=== PATIENT | male | born 1975 | race Caucasian/White ===

== ENCOUNTER 2018-08-04 10:57 | Emergency (ER) | payer OTHER ==
[2018-08-04 12:02] LABS: Absolute Lymphocytes (CBC) 1.7 K/uL (0.7-4.9); Absolute Monocytes 0.6 K/uL (0.1-1.3); Absolute Neutrophil 6.9 K/uL (1.8-8.0); Basophils % 1.2 % (0-1.3); Eosinophils % 0.1 % (0-4.4); Hematocrit 46.5 % (39.6-49.0); Lymphocytes % 18.6 % (15.3-44.8); MPV 9.3 fL (7.6-11.3); Monocytes % 6.1 % (3.3-12.3); RBC Red Blood Cell Count 5.27 M/uL (4.33-5.43)
[2018-08-04 12:12] LABS: Urine Amorphous Sediment 1+ /HPF (NONE SEEN); Urine Bacteria <20 /HPF (NONE SEEN); Urine Culture Reflex Order NOT NEEDED; Urine RBC <5 /HPF (NONE SEEN)
[2018-08-04 12:18] LABS: ALT/SGPT 61 U/L (12-78); AST/SGOT 29 U/L (15-37); Albumin 4.3 g/dL (3.4-5.0); Alkaline Phosphatase 60 U/L (45-117); BUN Blood Urea Nitrogen 8 mg/dL (7-18); Bicarbonate 27 mmol/L (21-32); Bilirubin Direct 0.1 mg/dL (0-0.2); Bilirubin Total 0.5 mg/dL (0.2-1.0); Glucose Level 122 mg/dL (74-106); Lipase 116 U/L (73-393); Magnesium 2.3 mg/dL (1.8-2.4); Protein, Total 7.9 g/dL (6.4-8.2); Sodium Level 141 mmol/L (136-145)
--- NOTE | 2018-08-04 12:51 | ER ---
Nurse's Notes [facility] Name: Yazan Peterson Age: 43 yrs Sex: Male : 1975 Arrival Date: 08/04/2018 Time: 11:02 Bed 15 Private MD: Diagnosis: Tinea cruris Presentation: 08/04 11:17 Presenting complaint: Patient states: burning sensation to bilateral thighs that began ss a few days ago that has not spread all over body. PT states, "Since last night, it's been hard to sleep because whenever I move it feels like I have a sunburn and I'm so thirsty. Also my penis ureña." Denies fever, N/V/D. Transition of care: patient was not received from another setting of care. Onset of symptoms is unknown. Risk Assessment: Do you want to hurt yourself or someone else? Patient reports no desire to harm self or others. Initial Sepsis Screen: Does the patient meet any 2 criteria? HR > 90 bpm. Does the patient have a suspected source of infection? No. Patient's initial sepsis screen is negative. Care prior to arrival: None. 11:17 Method Of Arrival: Ambulatory ss 11:17 Acuity: AARON 3 ss Historical: - Allergies: 11:21 No Known Allergies; ss - Home Meds: 11:21 None [Active]; ss - PMHx: 11:21 None; ss - PSHx: 11:21 R knee repair; ss - Immunization history:: Adult Immunizations up to date. - Social history:: Smoking status: Patient/guardian denies using tobacco. - Ebola Screening: : Patient denies exposure to infectious person Patient denies travel to an Ebola-affected area in the 21 days before illness onset. Screenin:50 Abuse screen: Denies threats or abuse. Denies injuries from another. Nutritional ca1 screening: No deficits noted. Tuberculosis screening: No symptoms or risk factors identified. Fall Risk None identified. Assessment: 11:50 General: Appears in no apparent distress. Behavior is calm, cooperative, appropriate ca1 for age. 11:50 Pain: Complains of pain in inner thigh Pain currently is 4 out of 10 on a pain scale. ca1 Quality of pain is described as burning. Neuro: Level of Consciousness is awake, alert, obeys commands, Oriented to person, place, time, situation. Cardiovascular: Heart tones S1 S2 present Capillary refill < 3 seconds. Respiratory: Airway is patent Trachea midline Respiratory effort is even, unlabored, Respiratory pattern is regular, symmetrical, Breath sounds are clear bilaterally. GI: Abdomen is round non-distended, Bowel sounds present X 4 quads. Abd is soft and non tender X 4 quads. Reports nausea. : No signs and/or symptoms were reported regarding the genitourinary system. : No signs and/or symptoms were reported regarding the genitourinary system. EENT: No signs and/or symptoms were reported regarding the EENT system. Derm: Skin is intact, is healthy with good turgor, Skin is pink, warm \\T\\ dry. Musculoskeletal: Circulation, motion, and sensation intact. 12:46 Reassessment: Patient appears in no apparent distress at this time. Patient and/or ca1 family updated on plan of care and expected duration. Pain level reassessed. Patient is alert, oriented x 3, equal unlabored respirations, skin warm/dry/pink. 12:47 Reassessment: JAMES Victoria at bedside. ca1 Vital Signs: 11:16 BP 157 / 109; Pulse 105; Resp 16; Temp 99.0(TE); Pulse Ox 96% on R/A; Weight 120.2 kg; ss Height 5 ft. 6 in. (167.64 cm); Pain 6/10; 11:16 Body Mass Index 42.77 (120.20 kg, 167.64 cm) ED Course: 11:02 Patient arrived in ED. rg4 11:08 Peter Victoria PA is PHCP. cp 11:09 Alcides Dai MD is Attending Physician. cp 11:16 Arm band placed on right wrist. ss 11:20 Triage completed. ss 11:20 Patient has correct armband on for positive identification. Placed in gown. Bed in low ca1 position. Call light in reach. Side rails up X 1. Pulse ox on. NIBP on. Warm blanket given. 11:27 Jessica Dixon, RN is Primary Nurse. ca1 11:50 Inserted saline lock: 20 gauge in right antecubital area, using aseptic technique. ca1 Blood collected. 13:07 No provider procedures requiring assistance completed. IV discontinued, intact, ca1 bleeding controlled, No redness/swelling at site. Pressure dressing applied. Administered Medications: No medications were administered Point of Care Testing: Blood Glucose: 11:16 Blood Glucose: 127 mg/dL; Ranges: Outcome: 12:51 Discharge ordered by . mai 13:07 Discharged to home ambulatory. ca1 13:07 Condition: stable 13:07 Discharge instructions given to patient, Instructed on discharge instructions, follow up and referral plans. medication usage, Demonstrated understanding of instructions, follow-up care, medications, Prescriptions given X 2. 13:08 Patient left the ED. ca1 Signatures: Alexa Roman RN RN ss Peter Victoria PA PA cp Garcia, Rubi rg4 Jessica Dixon RN RN ca1
--- NOTE | 2018-08-04 12:51 | EDPHYS ---
Physician Documentation [facility] Name: Yazan Peterson Age: 43 yrs Sex: Male : 1975 Arrival Date: 08/04/2018 Time: 11:02 Bed 15 Private MD: ED Physician Alcides Dai HPI: 08/04 11:30 This 43 yrs old Male presents to ER via Ambulatory with complaints of cp Weakness, Nausea. 11:30 The patient presents to the emergency department with burning sensation to bilateral cp inner thighs. 11:30 Onset: The symptoms/episode began/occurred gradually, and became worse last night. cp Associated signs and symptoms: Pertinent positives: burning at end of penis, increased thirst and urination. Historical: - Allergies: 11:21 No Known Allergies; ss - Home Meds: 11:21 None [Active]; ss - PMHx: 11:21 None; ss - PSHx: 11:21 R knee repair; ss - Immunization history:: Adult Immunizations up to date. - Social history:: Smoking status: Patient/guardian denies using tobacco. - Ebola Screening: : Patient denies exposure to infectious person Patient denies travel to an Ebola-affected area in the 21 days before illness onset. ROS: 11:35 Constitutional: Negative for body aches, chills, fever, poor PO intake. cp 11:35 Eyes: Negative for injury, pain, redness, and discharge. cp 11:35 ENT: Negative for drainage from ear(s), ear pain, sore throat, difficulty swallowing, cp difficulty handling secretions. 11:35 Cardiovascular: Negative for chest pain, edema, palpitations. 11:35 Respiratory: Negative for cough, shortness of breath, wheezing. 11:35 Abdomen/GI: Positive for nausea, Negative for abdominal pain, vomiting, diarrhea, constipation, black/tarry stool, rectal bleeding. 11:35 Back: Negative for pain at rest, pain with movement, radiated pain. 11:35 : Positive for urinary frequency, burning at end of penis, Negative for hematuria, burning with urination, difficulty urinating, penile discharge, penile pain, testicular pain 11:35 Neuro: Positive for general weakness, Negative for altered mental status, dizziness, cp headache, numbness, tingling. 11:35 All other systems are negative. Exam: 11:42 Constitutional: The patient appears in no acute distress, alert, awake, cp non-diaphoretic, non-toxic, well developed, well nourished. 11:42 Head/Face: Normocephalic, atraumatic. cp 11:42 Eyes: Periorbital structures: appear normal, Conjunctiva: normal, no exudate, no injection, Sclera: no appreciated abnormality, Lids and lashes: appear normal, bilaterally. 11:42 ENT: External ear(s): are unremarkable, Ear canal(s): are normal, clear, TM's: dullness, bilaterally, Nose: is normal, Mouth: Lips: moist, Oral mucosa: pink and intact, moist, Posterior pharynx: is normal, airway is patent, no erythema, no exudate. 11:42 Neck: ROM/movement: is normal, is supple, without pain, no range of motions limitations, no nuchal rigidity. 11:42 Chest/axilla: Inspection: normal, Palpation: is normal, no crepitus, no tenderness. 11:42 Cardiovascular: Rate: tachycardic, Rhythm: regular, Heart sounds: murmur, not appreciated, Edema: is not appreciated, JVD: is not appreciated. 11:42 Respiratory: the patient does not display signs of respiratory distress, Respirations: normal, no use of accessory muscles, no retractions, no splinting, no tachypnea, labored breathing, is not present, Breath sounds: are clear throughout, no decreased breath sounds, no stridor, no wheezing. 11:42 Abdomen/GI: Inspection: obese Bowel sounds: active, all quadrants, Palpation: abdomen is soft and non-tender, in all quadrants, rebound tenderness, is not appreciated, involuntary guarding, is not appreciated. 11:42 Back: pain, is absent, ROM is normal. 11:42 Skin: cellulitis, is not appreciated, rash can be described as erythematous, on the genitalia and intertriginous areas of groin. 11:42 Neuro: Orientation: to person, place \T\ time. Mentation: is normal, Cerebellar function: is grossly normal, Motor: moves all fours, strength is normal, Sensation: no obvious gross deficits, Gait: is steady, at a normal pace, without difficulty. Vital Signs: 11:16 BP 157 / 109; Pulse 105; Resp 16; Temp 99.0(TE); Pulse Ox 96% on R/A; Weight 120.2 kg; ss Height 5 ft. 6 in. (167.64 cm); Pain 6/10; 11:16 Body Mass Index 42.77 (120.20 kg, 167.64 cm) ss MDM: 11:09 Patient medically screened. 12:50 Data reviewed: vital signs, nurses notes, lab test result(s), and as a result, I will cp discharge patient. 12:50 Counseling: I had a detailed discussion with the patient and/or guardian regarding: the cp historical points, exam findings, and any diagnostic results supporting the discharge/admit diagnosis, lab results, the need for outpatient follow up, a family practitioner. 08/04 11:26 Order name: Basic Metabolic Panel; Complete Time: 12:20 08/04 12:20 Interpretation: Normal except: GLUC 122. 08/04 11:26 Order name: CBC with Diff; Complete Time: 12:20 08/04 12:26 Interpretation: Normal except: COLLEEN% 74.0. 08/04 11:26 Order name: Creatinine for Radiology; Complete Time: 12:20 08/04 11:26 Order name: Hepatic Function; Complete Time: 12:20 08/04 12:26 Interpretation: Normal except: GLOB 3.6. 08/04 11:26 Order name: Lipase; Complete Time: 12:20 08/04 11:26 Order name: Magnesium; Complete Time: 12:20 08/04 11:26 Order name: IV Saline Lock; Complete Time: 11:52 08/04 11:26 Order name: Labs collected and sent; Complete Time: 11:52 08/04 11:26 Order name: Urine Dipstick-Ancillary (obtain specimen); Complete Time: 12:00 08/04 11:26 Order name: Urine Microscopic Only; Complete Time: 12:20 08/04 12:27 Interpretation: Reviewed. 08/04 11:27 Order name: Accucheck Blood Glucose; Complete Time: 11:52 08/04 11:53 Order name: Glucose, Ancillary Testing; Complete Time: 12:20 EDMS 08/04 11:53 Order name: Glucose, Ancillary Testing; Complete Time: 12:20 EDRI 08/04 12:24 Order name: Urine Dipstick--Ancillary (enter results) bd Administered Medications: No medications were administered Point of Care Testing: Blood Glucose: 11:16 Blood Glucose: 127 mg/dL; Ranges: Critical Glucose Levels:Adult <50 mg/dl or >400 mg/dl <40 mg/dl or >180 mg/dl Disposition: 18:27 Co-signature as Attending Physician, Alcides Dai MD. ma2 Disposition: 08/04/18 12:51 Discharged to Home. Impression: Tinea cruris. - Condition is Stable. - Discharge Instructions: Jock Itch. - Prescriptions for Clotrimazole 1 % Topical Cream - Apply to affected area 1 application by TOPICAL route every 12 hours; 30 gram. Fluconazole 200 mg Oral Tablet - take 2 tablets by ORAL route once daily for 1 day; 2 tablet. - Medication Reconciliation Form, Thank You Letter, Antibiotic Education, Prescription Opioid Use form. - Follow up: Private Physician; When: once returned home; Reason: Recheck today's complaints. - Problem is new. - Symptoms are unchanged. Signatures: Dispatcher [employer] EDAlexa Batista RN RN ss Peter Victoria PA PA cp Alzahri, Mohammad, MD MD ma2 Jessica Dixon RN RN ca1 Corrections: (The following items were deleted from the chart) 13:08 12:51 08/04/2018 12:51 Discharged to Home. Impression: Tinea cruris. Condition is ca1 Stable. Forms are Medication Reconciliation Form, Thank You Letter, Antibiotic Education, Prescription Opioid Use. Follow up: Private Physician; When: once returned home; Reason: Recheck today's complaints. Problem is new. Symptoms are unchanged. cp 08/05 12:28 08/04 11:30 The patient presents to the emergency department with paresthesias of the cp bilateral inner thighs, cp
[2018-08-04 13:45] LABS: Urine Blood 1+ (NEG); Urine Glucose NEGATIVE (NEG); Urine Protein 2+ (NEG)
== END 2018-08-04 13:08 | disposition home or self-care (01) ==
LOC: ER 10:57
DX: B35.6 Tinea cruris (principal); R53.1 Weakness; R11.0 Nausea
CPT/HCPCS: 36415; 80048; 80076; 81003; 81015; 82962; 83690; 83735; 85025; 99284